=== PATIENT | male | born 1965 | race American Indian/Alaskan Native ===

== ENCOUNTER 2016-10-29 11:20 | Emergency (ER) | payer SELFPAY ==
[2016-10-29] MEDS ORDERED: ZOFRAN ODT PO ONE (13:48)
[2016-10-29] MEDS ORDERED: DILAUDID IM ONE (13:48)
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
--- NOTE | 2016-10-29 15:22 | XRay Report ---
Bilateral RIBS: Pain, shortness of breath. There are posterior fractures extending from the second through seventh right ribs. There is offset and overlap from the fourth through seventh ribs. There are anterior rib fractures from 7 through 10. There is a small right effusion at the lung base. The lung appears to be fully inflated and clear. The left lung is unremarkable. The mediastinal contour is normal. No left rib fractures identified. No other bone pathology noted. Impressions: Multiple right rib fractures and right pleural effusion.
[2016-10-29 17:07] LABS: Anion Gap 20 mmol/L; BUN/Creatinine Ratio 12.85; Blood Urea Nitrogen 9 mg/dL (9-20); Calcium 9.2 mg/dL (8.4-10.2); Carbon Dioxide 21 mmol/L (22-30); Chloride 98.3 mmol/L (98-107); Glucose 87 mg/dL (75-100); Sodium 135 mmol/L (137-145)
[2016-10-29 17:16] LABS: Basophils % (Auto) 0.5 % (0.0-1.8); Eosinophils % (Auto) 2.6 % (0.0-4.3); Hematocrit 41.1 % (35.5-45.6); Hemoglobin 13.1 gm/dl (11.8-15.2); Mean Corpuscular HGB Conc 32 % (32-34); Mean Corpuscular Hemoglobin 26 pg (28-32); Mean Corpuscular Volume 82 fl (84-94); Platelet Count 557 K/mm3 (140-440); Red Blood Count 5.02 M/mm3 (3.65-5.03); Red Cell Distribution Width 15.5 % (13.2-15.2); White Blood Count 16.3 K/mm3 (4.5-11.0)
[2016-10-29] MEDS ORDERED: TORADOL IV ONE (17:21)
[2016-10-29] MEDS ORDERED: NACL ONE (17:54)
--- NOTE | 2016-10-29 19:37 | Cat Scan Report ---
FINAL REPORT PROCEDURE: CT CHEST W CON TECHNIQUE: Computerized axial tomography of the chest was performed during the IV injection of iodinated nonionic contrast. HISTORY: multiple rib fx, effusion COMPARISON: No prior studies are available for comparison. TECHNICAL QUALITY: Satisfactory. FINDINGS: Likely mild changes of COPD are seen. Small right pleural effusion is seen which is low in density. Associated atelectasis is seen. No pneumothorax is seen. Nondisplaced fractures of the right 5th through 10th ribs are seen laterally. There is a mildly displaced fracture of the anterior aspect of the right 4th rib with more moderately displaced fracture of the anterior aspect of the right 3rd rib. Nondisplaced fractures are seen of the posterior aspects of the right 1st through 3rd ribs. There are moderately displaced fractures of the posterior aspects of the right 4th through 7th ribs posteriorly. There is a nondisplaced fracture of the anterior aspect of the left 5th rib and nondisplaced fractures of the anterolateral aspects of the left 6 and 7th ribs. No sternal fracture is seen. IMPRESSION: Multiple bilateral rib fractures are seen, some which are displaced. Small low-density right pleural effusion is seen but no pneumothorax is seen.
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
[2016-10-30 00:51] VITALS: BP 147/93
== END 2016-10-30 03:21 | disposition home or self-care (01) ==
LOC: ED 11:20
DX: S22.31XA Fracture of one rib, right side, initial encounter for closed fracture (principal); V89.2XXA Person injured in unspecified motor-vehicle accident, traffic, initial encounter; Y93.89 Activity, other specified; Y92.488 Other paved roadways as the place of occurrence of the external cause; Y99.8 Other external cause status; J90 Pleural effusion, not elsewhere classified
CPT/HCPCS: 36415; 71101; 71260; 78582; 80048; 85025; 85379; 93005; 93010; 96372; 96374; 99285; A9540; A9558; J1170; J1885; Q9967; Q0162